=== PATIENT | female | born 1970 | race Two or more races ===

== ENCOUNTER 2019-08-05 07:14 | Outpatient (CLI) | payer OTHER | END 2019-08-05 07:21 | disposition home or self-care (01) | LOC: MAMO-SONO 07:14 | PROVIDERS: ATTEND Internal Medicine Geriatric Medicine | DX: Z12.31 Encounter for screening mammogram for malignant neoplasm of breast (principal); C50.919 Malignant neoplasm of unspecified site of unspecified female breast; N63.10 Unspecified lump in the right breast, unspecified quadrant; N63.20 Unspecified lump in the left breast, unspecified quadrant; N64.4 Mastodynia; N60.12 Diffuse cystic mastopathy of left breast; N60.11 Diffuse cystic mastopathy of right breast ==